=== PATIENT | female | born 1980 | race African-American/Black ===

== ENCOUNTER 2024-09-29 16:48 | Inpatient (IN) | payer OTHER ==
[2024-09-29 17:13] VITALS: BMI 25.6
[2024-09-29] MEDS ORDERED: NALOXONE (NARCAN) HCL 4 MG/0.1 ML SPRAY NS PRN (18:30)
[2024-09-29] MEDS ORDERED: guaiFENesin 600 MG TABLET.ER (FP) PO PRN (18:30)
[2024-09-29] MEDS ORDERED: ACETAMINOPHEN 325 MG TABLET (FP) PO PRN (18:30)
[2024-09-29] MEDS ORDERED: IBUPROFEN 400 MG TABLET (FP) PO PRN (18:30)
[2024-09-29] MEDS ORDERED: BENZONATATE 200 MG CAPSULE PO PRN (18:30)
[2024-09-29] MEDS ORDERED: LOPERAMIDE HCL 2 MG CAPSULE PO PRN (18:30)
[2024-09-29] MEDS ORDERED: MAG HYDROX/AL HYDROX/SIMETH 30 ML UNIT-DOSE CUP PO PRN (18:30)
[2024-09-29] MEDS ORDERED: MAGNESIUM HYDROX 2400MG/30ML ORAL SUSPENSION 30 ML CUP PO PRN (18:30)
[2024-09-29] MEDS ORDERED: NICOTINE POLACRILEX 2 MG GUM BUC PRN (18:30)
[2024-09-29] MEDS ORDERED: BENZOCAINE/MENTHOL (CHLORASEPTIC ) LOZENGE MM PRN (18:30)
[2024-09-29] MEDS ORDERED: NICOTINE POLACRILEX 2 MG LOZENGE BC PRN (18:30)
[2024-09-29] MEDS ORDERED: POLYETHYLENE GLYCOL (HEALTHYLAX) 3350 17 GM PACKET PO PRN (18:30)
[2024-09-29] MEDS ORDERED: INSULIN (NOVOLOG) ASPART 100 UNITS/ML 10ML VIAL ONE (19:45)
[2024-09-29] MEDS: INSULIN (NOVOLOG) ASPART 100 UNITS/ML 10ML VIAL SQ ONE (19:47)
[2024-09-29] MEDS ORDERED: levETIRAcetam 500 MG TABLET (FP) PO ONE (21:14)
[2024-09-29] MEDS ORDERED: TUBERCULIN PPD 5 TU/0.1ML SYRINGE (IN PATIENT USE ONLY) ID ONE (22:31)
[2024-09-29] MEDS: INSULIN ASPART SLIDING SCALE (NOVOLOG) 1 VIAL SQ SCH (22:47)
[2024-09-29] MEDS: levETIRAcetam 500 MG TABLET (FP) PO ONE (22:47)
[2024-09-29] MEDS: THIAMINE 100 MG TABLET PO SCH (22:47)
[2024-09-29] MEDS: MELATONIN 5 MG TABLETS PO SCH (22:47)
[2024-09-30] MEDS: PRENATAL VITAMINS W/ FOLIC ACID TABLET (FP) PO SCH (10:17)
[2024-09-30] MEDS: TUBERCULIN PPD 5 TU/0.1ML SYRINGE (IN PATIENT USE ONLY) ID ONE (10:21)
[2024-09-30 11:36] LABS: POTASSIUM 4.3 mmol/L (3.5-5.1)
[2024-09-30 11:41] LABS: ALBUMIN 3.2 g/dl (3.4-5.0); BLOOD UREA NITROGEN 14.3 mg/dL (7-18); CALCIUM 10.2 mg/dL (8.5-10.1)
[2024-09-30 11:44] LABS: CREATININE 0.8 mg/dL (0.55-1.3)
[2024-09-30 11:46] LABS: BILIRUBIN,TOTAL 0.6 mg/dL (0.2-1); TOT PROT 6.6 g/dl (6.4-8.2)
[2024-09-30 11:52] LABS: HEMATOCRIT 33.7 % (34.1-44.9); HEMOGLOBIN 11.1 g/dL (11.2-15.7); MCHC 32.9 g/dl (32.2-35.5); MEAN CELL VOLUME 76.9 fl (79.4-94.8); PLATELET COUNT 422 x10^3/uL (182-369); RDW 15.6 % (12.2-17.1)
[2024-09-30 12:05] LABS: SYPHILIS W/ RPR CONF NON-REACTIVE (NONREACTIVE)
[2024-09-30 12:34] LABS: HCV DIAGNOSTIC IN-HOUSE W/RFLX NON-REACTIVE (NONREACTIVE)
[2024-10-01] MEDS ORDERED: INSULIN (NOVOLOG) ASPART 100 UNITS/ML 10ML VIAL ONE (11:08)
[2024-10-03] MEDS ORDERED: INSULIN (NOVOLOG) ASPART 100 UNITS/ML 10ML VIAL ONE ×2 (11:51→16:39)
[2024-10-04] MEDS ORDERED: INSULIN (NOVOLOG) ASPART 100 UNITS/ML 10ML VIAL ONE ×4 (07:02→21:00)
[2024-10-05] MEDS: metFORMIN HCL 500 MG TABLET (FP) PO SCH (10:35)
[2024-10-05 11:38] LABS: URINE APPEARANCE CLEAR; URINE BILIRUBIN NEGATIVE (NEGATIVE); URINE COLOR YELLOW; URINE GLUCOSE (UA) NEGATIVE (NEGATIVE); URINE KETONE NEGATIVE (NEGATIVE); URINE LEUK ESTERASE NEGATIVE (NEGATIVE); URINE NITRITE NEGATIVE (NEGATIVE); URINE PROTEIN NEGATIVE (NEGATIVE); URINE UROBILINOGEN 0.2 mg/dL (0.2-1.0)
[2024-10-05] MEDS ORDERED: INSULIN (NOVOLOG) ASPART 100 UNITS/ML 10ML VIAL ONE (12:06)
[2024-10-05] MEDS: NALTREXONE HCL 50 MG TABLET PO SCH (20:49)
[2024-10-05] MEDS: MELATONIN 5 MG TABLETS PO SCH (21:30)
[2024-10-06] MEDS ORDERED: INSULIN (NOVOLOG) ASPART 100 UNITS/ML 10ML VIAL ONE ×2 (06:14→11:57)
[2024-10-07] MEDS ORDERED: INSULIN (NOVOLOG) ASPART 100 UNITS/ML 10ML VIAL ONE ×4 (05:47→20:01)
[2024-10-07 07:27] VITALS: PULSE 100
[2024-10-08] MEDS ORDERED: INSULIN (NOVOLOG) ASPART 100 UNITS/ML 10ML VIAL ONE (05:58)
[2024-10-08 06:50] VITALS: BP 130/68; RESP 16; TEMP 97.5
== END 2024-10-08 13:40 | disposition left against medical advice (07) | DRG 770 ==
LOC: YASAS 16:48 → Y3NR 19:45 → Y5N 10-03 11:15
PROVIDERS: ADMIT Psychiatry & Neurology Pain Medicine; ATTEND Psychiatry & Neurology Pain Medicine
PROC: HZ42ZZZ Group Counseling for Substance Abuse Treatment, Cognitive-Behavioral (ICD-10-PCS; principal; 2024-09-29)
DX: F14.20 Cocaine dependence, uncomplicated (principal); F12.20 Cannabis dependence, uncomplicated; F17.210 Nicotine dependence, cigarettes, uncomplicated; F31.9 Bipolar disorder, unspecified; E78.5 Hyperlipidemia, unspecified; E11.9 Type 2 diabetes mellitus without complications; R56.1 Post traumatic seizures; Z86.73 Personal history of transient ischemic attack (TIA), and cerebral infarction without residual deficits; Z88.0 Allergy status to penicillin
CPT/HCPCS: 36415; 80053; 80305; 80307; 81003; 81025; 82962; 85027; 86780; 86803; 87811; 93005; 93010